=== PATIENT | male | born 1980 | race Caucasian/White ===

== ENCOUNTER 2024-06-24 10:19 | Emergency (ER) | payer BC | END 2024-06-24 10:40 | disposition home or self-care (01) | LOC: JD.ED 10:19 | DX: S02.5XXA Fracture of tooth (traumatic), initial encounter for closed fracture (principal); Z79.899 Other long term (current) drug therapy; X58.XXXA Exposure to other specified factors, initial encounter | CPT/HCPCS: 99282 ==